=== PATIENT | female | born 1990 | race Hispanic/Latino ===

== ENCOUNTER 2018-10-09 00:41 | Emergency (ER) | payer MEDICAID, OTHER ==
[~2018-10-09 00:41] MED LIST: PREN1TAB89 PO
== END 2018-10-09 03:14 | disposition home or self-care (01) ==
LOC: EDH 00:41
DX: R50.9 Fever, unspecified (principal); J02.9 Acute pharyngitis, unspecified; R09.81 Nasal congestion; R11.0 Nausea
CPT/HCPCS: 99281